=== PATIENT | female | born 1950 | race Caucasian/White ===

== ENCOUNTER 2016-11-07 17:04 | Emergency (ER) | payer OTHER, MEDICARE ==
--- NOTE | 2016-11-07 17:19 | EDPHY ---
H & P Time Seen by Provider: 11/07/16 17:17 HPI/ROS: CHIEF COMPLAINT: Right flank pain HISTORY OF PRESENT ILLNESS: Patient is had symptoms for the last 10 days. The only thing she can remember she was cutting a lot of firewood the day before, but the pain has persisted and has always been on her right flank and lower back. Not associated with fever or chills or rash. Not associated with radiation to her leg or numbness or weakness in her legs or incontinence. No urinary symptoms. yesterday she was at the dentist and had a reprieve and thought maybe it was gone but then now it is back. Right-sided. Does not radiate to groin or legs or feet. Today was worse with every bump in the car and a little bit intermittently with deep breath. More comfortable standing, worse sitting or lying down. Moderate to severe in nature. REVIEW OF SYSTEMS: Eye: no change in vision ENT: no sore throat Cardiac: no anterior chest pain or syncope Pulmonary: no cough or SOB Abdomen: no vomiting, diarrhea, or anterior abdominal pain Musculoskeletal: HPI Skin: no rash Neuro: no headache or weakness or numbness Constitutional: no fever : no urinary symptoms, dysuria, hematuria A comprehensive 10 point review of systems is otherwise negative aside from elements mentioned in the history of present illness. PAST MEDICAL HISTORY: , GERD, thyroid, joint replacement with bilateral hips, bilateral knees, right ankle. No history of AFib or venous thromboembolism. C-spine surgery. 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 General Appearance: Alert and conversant, cooperative. Eyes: No scleral icterus. ENT, Mouth: Normal mucous membranes. Respiratory: Normal respiratory effort, breath sounds equal, lungs are clear to auscultation. Cardiovascular: Regular rate and rhythm. Gastrointestinal: Abdomen is soft and non tender. No pulsatile masses. Neurological: Alert and oriented x3. Normally conversant. Face symmetric, normal movement and sensation in all extremities. Ambulatory. No clonus. Skin: Warm and dry, no rashes. No zoster or vesicles over area of symptoms. Musculoskeletal: No midline spinal tenderness. Mild right CVA tenderness. Psychiatric: Not agitated. Emergency Department course/MDM: Urine dip, D-dimer, noncontrast abdomen pelvis CT to evaluate for renal colic. 1835: No reason for right flank pain seen on CT per Dr. Agosto. No renal colic, normal aortic size, negative spine. D-dimer 1.91, CTA discussed but elevated creatinine, will do ventilation perfusion scan instead; warned will be a delay for call-in of nuclear med. Evaluation for pulmonary embolism given the sometimes pleuritic nature of the patient's pain extends up to the right costal margin. I think that a renal infarct or vascular event is unlikely. Does not have atrial fibrillation or other known risk factors for cardiac emboli. 2201: Normal V/Q scan per Dr. Bear. Likely muscular or inflammatory at this point in the workup. Results and symptomatic treatment discussed. Patient declined any type of pain medication in ED or Rx on discharge. Smoking Status: Never smoked Constitutional: Initial Vital Signs Temperature (C) 37.1 C 11/07/16 17:13 Heart Rate 89 11/07/16 17:13 Respiratory Rate 16 11/07/16 17:13 Blood Pressure 113/77 11/07/16 17:13 O2 Sat (%) 97 11/07/16 17:13 O2 Delivery Mode Room Air Allergies/Adverse Reactions: morphine Allergy (Verified 11/07/16 17:11) nafcillin Allergy (Verified 11/07/16 17:11) Home Medications: Medication Instructions Recorded Lipitor 11/07/16 Lisinopril 11/07/16 Protonix 11/07/16 Synthroid 11/07/16 Medical Decision Making - Diagnostics Imaging Results: Imaging Impressions Chest X-Ray 11/07/16 18:43 Impression: Stable negative chest. Lung Scan Nuclear Medicine 11/07/16 18:43 Impression: Normal; no evidence of pulmonary embolism. Findings discussed with Emergency Department physician, Bonilla Rivera, on November 07, 2016 at 2202. Differential Diagnosis: Includes but not limited to AAA, renal colic, PE, pneumothorax, spine problem or sciatica, muscular, UTI, zoster. - Data Points Laboratory Results: Laboratory Results 11/07/16 17:45 11/07/16 17:45 Departure - Departure Disposition: Home, Routine, Self-Care Clinical Impression: Right flank pain Condition: Good Instructions: Flank Pain (ED) Referrals: Silver Malik MD [Medical Doctor] - As per Instructions
[2016-11-07 17:56] LABS: % IMMATURE GRANULYOCYTES 0.2 % (0.0-1.1); ABSOLUTE IMMATURE GRANULOCYTES 0.02 10^3/uL (0.00-0.10); ADD DIFF? NO; ADD MORPH? NO; ADD SCAN? NO; ATYPICAL LYMPHOCYTE FLAG 0 (0-99); FRAGMENT RBC FLAG 0 (0-99); HEMATOCRIT 43.6 % (38.0-47.0); HEMOGLOBIN 14.1 g/dL (12.6-16.3); LEFT SHIFT FLG 0 (0-99); LIPEMIA HEMOLYSIS FLAG 80 (0-99); MEAN CELL HEMOGLOBIN 29.2 pg (27.9-34.1); MEAN CELL HEMOGLOBIN CONCENTR. 32.3 g/dL (32.4-36.7); MEAN CELL VOLUME 90.3 fL (81.5-99.8); MEAN PLATELET VOLUME 9.6 fL (8.7-11.7); PLATELET CLUMPS FLAG 0 (0-99); PLATELET COUNT 285 10^3/uL (150-400); RED BLOOD CELL COUNT 4.83 10^6/uL (4.18-5.33); RED CELL DISTRIBUTION WIDTH 15.1 % (11.5-15.2)
[2016-11-07 18:06] LABS: MUCUS TRACE /lpf (NONE-1+); RBC,URINE NONE SEEN /hpf (0-3)
[2016-11-07 18:26] LABS: ANION GAP 16 mEq/L (8-16); CALCIUM 10.6 mg/dL (8.5-10.4); CARBON DIOXIDE 22 mEq/l (22-31); CHLORIDE 98 mEq/L (97-110); GLOMERULAR FILTRATION RATE 25; GLUCOSE 124 mg/dL (70-100); POTASSIUM 4.4 mEq/L (3.5-5.2); SODIUM 136 mEq/L (134-144)
[2016-11-07 20:57] VITALS: RESP 18; TEMP 97.9
[2016-11-07 22:17] VITALS: BP 121/89; PULSE 69; O2SAT 94
== END 2016-11-07 22:16 | disposition home or self-care (01) ==
DX: R10.9 Unspecified abdominal pain (principal)
CPT/HCPCS: 71020; 74176; 78582; 99285; A9540; A9558